=== PATIENT | female | born 1975 | race Caucasian/White ===

== ENCOUNTER 2022-11-03 10:27 | Observation (INO) | payer MEDICARE, MEDICAID, SELFPAY ==
[2022-11-03] VITALS (33 sets, daily range): BP systolic 106–156; BP diastolic 52–100; PULSE 60–87; RESP 13–23; TEMP 36.6–37.2; O2SAT 95–99
--- NOTE | 2022-11-03 10:30 | RT.EKG_ITS ---
APPROVED REPORT Exam: Resting ECG Reason for Exam: stroke like symptoms Patient Location: E HR:76 bpm ECG Measurements Heart Rate 76 AXIS SD 186 P 16 QRSd 87 QRS -28 QT 374 T 4 QTc 422 Conclusion Sinus rhythm...normal P axis, V-rate 60- 99 Inferior infarct, old...Q >35mS, II III aVF. Sinus. No STEMI. I have reviewed and interpreted ECG and agree with software generated interpretation.
--- NOTE | 2022-11-03 10:45 | DI.RAD_ITS ---
Exam(s) XR CHEST 1V IN DI DEPT EXAM: XR CHEST 1V IN DI DEPT CLINICAL HISTORY: weakness. TECHNIQUE: 2D digital imaging was performed. COMPARISON: No exams were available for comparison FINDINGS: Single AP portable view. Heart size is upper normal. The mediastinum is not widened. Lungs are clear. No infiltrates nor obvious pleural effusions. IMPRESSION: No acute pulmonary findings on this single AP portable view of the chest. DATA REPOSITORY: RADIATION DOSE DELIVERED:
--- NOTE | 2022-11-03 10:45 | DI.CT_ITS ---
Exam(s) CT BRAIN NECK CTA EXAM: CT BRAIN NECK CTA CLINICAL HISTORY: left pronator drift, left weakness, left facial. TECHNIQUE: Imaging Protocol: Axial CT angiography was performed with multi-slice acquisition and mu lti-planar and/or 3D reconstructions. CONTRAST MATERIAL: Intravenous: Omnipaque 350 Contrast volume:structured data in ml COMPARISON: No exams were available for comparison FINDINGS: CTA Neck W: Aortic arch anatomy: The aortic arch anatomy is conventional and there is no significant stenosis at the origin of the great vessels off of the aortic arch. No intimal flap evident. Anterior circulation: Both common carotid arteries ascend with normal luminal diameters. At the level the carotid bulbs and proximal internal carotid arteries there is no significant plaque nor narrowing evident. No dissection. Posterior circulation: Vertebral arteries originated conventional fashion off of the subclavian arteries and there is no obv ious stenosis at the origin of the vertebral arteries. Both vertebral arteries exhibit normal equal luminal diameters within the foramen transversarium. Both vertebral arteries contribute to the formation of the basilar artery at the skull base. CTA Brain W: Anterior circulation: Both internal carotid arteries are patent in the skull base-carotid canals as well as within the cave rnous sinuses. The supraclinoid aspects of the ICAs are patent. Both A1 segments are patent as are the anterior cer ebral arteries and there is no evidence of aneurysm at the level of the anterior communicating artery . Both middle cerebral arteries are patent with no evidence of significant stenosis nor intraluminal th rombus. There also no aneurysms of these vessels. Posterior circulation: The basilar artery ascends in the midline. Distally it gives off patent bilateral superior cerebella r arteries. Above this level the basilar artery terminates as patent bilateral posterior cerebral arteries. There is no evidence of aneurysm at the tip of the basilar artery nor elsewhere in the pwzyit-vh-Fjgj is. CT BRAIN: There is no evidence of intracranial hemorrhage, mass effect, or shift of midline structures. There are no extra-axial fluid collections. Ventricles are not enlarged or shifted. There are no ring enh ancing lesions in the brain and no abnormal meningeal enhancement. There are fluid levels in the left maxillary sinus and left sphenoid sinus consistent with sinusitis. Remainder of the paranasal sinuses are clear as are the mastoid air cells bilaterally. IMPRESSION: 1. Patent carotid arteries in the neck. No hemodynamically significant stenosis. 2. Patent vertebral arteries. 3. Patent intracranial arteries. No intracranial findings. No ring enhancing lesions in the brain. No abnormal meningeal enhancement . Fluid levels noted in the left maxillary and left sphenoid sinuses consistent with sinusitis. RADIATION DOSE DELIVERED: 1,868.49mGy.cm Total DLP DATA REPOSITORY: All CT scans at this facility are submitted to the National Radiology Data Registry (NRDR) Dose Index Registry (DIR) with the [employer] ([employer]). RADIATION OPTIMIZATION: All CT scans at this facility use at least one of these dose optimization te chniques: automated exposure control; mA and/or kV adjustment per patient size (includes targeted exa ms where dose is matched to clinical indication); or iterative reconstruction.
[2022-11-03 10:56] LABS: Abs Immature Grans 0.02 10^3/uL (0.0-0.06); Absolute Basophil Count 0.03 10^3/uL (0.0-0.2); Absolute Eosinophil Count 0.35 10^3/uL (0.0-0.7); Absolute Lymphocyte Count 3.12 10^3/uL (1.2-3.4); Absolute Monocyte Count 0.46 10^3/uL (0.1-0.8); Absolute Neutrophil Count 4.33 10^3/uL (1.2-6.7); Basophils % 0.4; Eosinophils % 4.2; HCT 40.7 % (36.0-46.0); HGB 13.6 g/dL (11.2-15.7); Immature Grans % 0.2; Lymphocytes % 37.5; MCH 29.6 pg (27.0-33.0); MCHC 33.4 % (32.0-36.0); MCV 89 fL (80-95); MPV 9.7 fL (8.0-11.0); Monocytes % 5.5; Neutrophils % 52.2; Platelet Count 301 10^3/uL (130-400); WBC 8.31 10^3/uL (4.4-10.8)
[2022-11-03 11:08] LABS: Bilirubin Negative (Negative); Blood Large (Negative); Clarity Sl Cloudy (Clear); Glucose Negative (Negative); Ketones Negative (Negative); Leukocyte Esterase Negative (Negative); Nitrite Negative (Negative); Specific Gravity 1.015 (1.005-1.025); Urobilinogen 0.2 EU/dL (Up TO 0.2); pH 7.5 (5-8)
[2022-11-03 11:10] LABS: Magnesium 1.8 mg/dL (1.8-2.4)
[2022-11-03] MEDS: Normal Saline - Diluent 50 ML VIAL IV (11:11)
[2022-11-03] MEDS: Omnipaque 350 MG/ML 100 ML BTL IJ (11:12)
[2022-11-03] MEDS: Normal Saline Flush 10 ML SYR IVP (11:13)
[2022-11-03 11:17] LABS: Bacteria Negative HPF (Negative); C & S Indicated? No; Casts Negative LPF (Negative); Crystals Negative HPF (Negative); Epithelial Cells Rare HPF (Negative); Mucus Negative (Negative); RBC 20-50 HPF (0-2); WBC 0-2 HPF (0-5)
[2022-11-03 11:25] LABS: Troponin I < 50 ng/L (<or=60)
--- NOTE | 2022-11-03 11:28 | DI.VRAD_ITS ---
PROCEDURE INFORMATION: Exam: CTA Head With Contrast, Arteriography Exam date and time: 11/03/2022 10:52 AM Age: 47 years old Clinical indication: Other: Left pronator drift, left weakness, left facial TECHNIQUE: Imaging protocol: Computed tomographic angiography of the head with contrast. Exam focused on the arteries. 3D rendering (Not supervised by radiologist): MIP and/or 3D reconstructed images were created by the technologist. Contrast material: OMNIPAQUE 350; Contrast volume: 100 ml; Contrast route: INTRAVENOUS (IV); COMPARISON: No relevant prior studies available. FINDINGS: ANTERIOR CIRCULATION: Right internal carotid artery: Intracranial segment is patent with no significant stenosis. No aneurysm. Right middle cerebral artery: No occlusion or significant stenosis. No aneurysm. Right anterior cerebral artery: No occlusion or significant stenosis. No aneurysm. Left internal carotid artery: Intracranial segment is patent with no significant stenosis. No aneurysm. Left middle cerebral artery: No occlusion or significant stenosis. No aneurysm. Left anterior cerebral artery: No occlusion or significant stenosis. No aneurysm. POSTERIOR CIRCULATION: Right vertebral artery: No occlusion or significant stenosis. No aneurysm. Left vertebral artery: No occlusion or significant stenosis. No aneurysm. Basilar artery: No occlusion or significant stenosis. No aneurysm. Right posterior cerebral artery: No occlusion or significant stenosis. No aneurysm. Left posterior cerebral artery: No occlusion or significant stenosis. No aneurysm. Brain: Hassan-white matter differentiation is within normal limits. No mass effect or midline shift. White matter is unremarkable.. Sulci and basilar cisterns are within normal limits. No extra-axial fluid collection. Cerebral ventricles: No ventriculomegaly. Paranasal sinuses: Mild mucosal thickening in the bilateral anterior ethmoidal air cells. Minimal mucosal thickening in the bilateral maxillary sinuses. Bones/joints: Unremarkable. No acute fracture. Soft tissues: Unremarkable. IMPRESSION: 1. No major vessel cut off /occlusion or high-grade stenosis in the arteries of the hugitg-bc-Ewfpqb. 2. No acute intracranial abnormality. No mass effect or midline shift or acute intracranial hemorrhage. PROCEDURE INFORMATION: Exam: CTA Neck With Contrast Exam date and time: 11/03/2022 10:52 AM Age: 47 years old Clinical indication: Other: Left pronator drift, left weakness, left facial TECHNIQUE: Imaging protocol: Computed tomographic angiography of the neck with contrast. 3D rendering (Not supervised by radiologist): MIP and/or 3D reconstructed images were created by the technologist. Contrast material: OMNIPAQUE 350; Contrast volume: 100 ml; Contrast route: INTRAVENOUS (IV); COMPARISON: No relevant prior studies available. FINDINGS: Right common carotid artery: No stenosis. No dissection or occlusion. Right internal carotid artery: No stenosis of the extracranial segment. No dissection or occlusion. Right external carotid artery: No occlusion or stenosis of the origin. Left common carotid artery: No stenosis. No dissection or occlusion. Left internal carotid artery: No stenosis of the extracranial segment. No dissection or occlusion. Left external carotid artery: No occlusion or stenosis of the origin. Right vertebral artery: No stenosis. No dissection or occlusion. Left vertebral artery: No stenosis. No dissection or occlusion. Soft tissues: Normal. No significant soft tissue swelling. Bones/joints: Straightening of cervical lordosis with mild reversal. IMPRESSION: No stenosis in the arteries of the neck. REFERENCES: NASCET CRITERIA. The degree of stenosis in the cervical segment of the internal carotid artery is based on NASCET criteria. Normal is no stenosis. Mild is less than 50% stenosis. Moderate is 50-69% stenosis. Severe is 70% to 99% stenosis. Total occlusion is no detectable patent lumen. Dictated and Authenticated by: Mil Srinivasan MD. Ordering:MEAGHAN Flores MD
--- NOTE | 2022-11-03 11:29 | DI.VRAD_ITS ---
PROCEDURE INFORMATION: Exam: XR Chest Exam date and time: 11/03/2022 11:18 AM Age: 47 years old Clinical indication: Other: Weakness TECHNIQUE: Imaging protocol: Radiologic exam of the chest. Views: 1 view. COMPARISON: CT BRAIN NECK CTA 11/03/2022 10:52 AM FINDINGS: Lungs: Unremarkable. No consolidation. Pleural spaces: Unremarkable. No pleural effusion. No pneumothorax. Heart/Mediastinum: Unremarkable. No cardiomegaly. Bones/joints: Unremarkable. IMPRESSION: No acute findings. Dictated and Authenticated by: Mil Srinivasan MD. Ordering:MEAGHAN Flores MD
[2022-11-03 11:30] LABS: ALT 17 U/L (14-59); AST 16 U/L (15-37); Albumin 3.7 g/dL (3.4-5.0); Alkaline Phosphatase 56 U/L (46-116); Anion Gap 7.5 mmol/L (3-11); BUN 10 mg/dL (7-18); Bilirubin, Total 0.4 mg/dL (0.2-1.0); CO2 28.5 mmol/L (21.0-32.0); CREATININE 0.9 mg/dL (0.55-1.02); Calcium 8.9 mg/dL (8.5-10.1); Chloride 102 mmol/L (98-107); Estimated GFR 78.86 (mL/min/1.73m2); Glucose 109 mg/dL (74-106); Potassium 3.6 mmol/L (3.5-5.1); Sodium 138 mmol/L (136-145); TSH (W/Ref FT4) 2.32 uIU/mL (0.36-3.74); Total Protein 7.8 g/dL (6.4-8.2)
[2022-11-03] MEDS: Aspirin 81 MG CHEW 324 MG PO (11:58)
[2022-11-03 12:45] LABS: Source Nasal/Nares
[2022-11-03] MEDS: Clopidogrel 300 MG TAB PO (12:50)
--- NOTE | 2022-11-03 12:53 | W.ED.GENAD ---
Discharge Plan Disposition Patient Disposition: Admit to [facility] Discharge Details Clinical Impression: History of TIA due to embolism Admit Date/Time: 11/03/22 12:44 Admit Provider: Yessy Fajardo Attending Provider: Yessy Fajardo Primary Care Provider: Deana Shaw ED Provider: Sandra Pineda Discharge Data Discharge Date/Time-TO BE ENTERED AT DEPARTURE: 11/03/22 13:21 Medical Decision Making 47-year-old female presents with left upper arm and leg weakness with paresthesias to left face she is unsure if her symptoms started prior to waking up, she states that she noticed them first when she was walking to the bathroom She denies any chest pain or shortness of breath She states that she has had similar symptoms in the past with hypokalemia although her potassium is more than normal limits today Her labs are baseline for her Her EKG does not show evidence of acute abnormality CTA does not show evidence of acute abnormality Case was reviewed with on-call neurologist, Dr. Tariq at [facility] His recommendation is to start Plavix and aspirin, check lipids, echo at her discretion, and perform dedicated MRI Patient's symptoms on reassessment have improved Her symptoms have continually improved throughout her encounter today She denies any chest pain or shortness of breath She denies any difficulty swallowing Aspirin and Plavix were initiated Case was discussed with Dr. Fajardo who is agreeable to admitting this patient HPI General Date/Time Provider Initiated Documentation: 11/03/22 10:38. HPI Narrative: This 47-year-old female presents with left facial paresthesias which started approximately 8:30 AM. She states she had just woken up when her symptoms began. She is unsure as to whether or not they started after she woke up prior to. She denies any difficulty swallowing, chest pain, shortness of breath, palpitations. Related Data Home Medications Medication Instructions Recorded Confirmed Ca 600 mg-D3 20 mcg-mag oxide 50 1 tab PO DAILY 11/03/22 11/03/22 uo-Af-jgskuw-manganese-boron tablet fluticasone furoate 200 2 inh inhalation 11/03/22 mcg/actuation blister powder for inhalation paroxetine HCl 20 mg tablet 20 mg PO DAILY 11/03/22 11/03/22 vitamin B complex 1 cap PO DAILY 11/03/22 11/03/22 albuterol sulfate 90 mcg/actuation 1 puff inhalation Q4H PRN PRN 11/04/22 aerosol inhaler (Ventolin HFA) Wheezing, Shortness Of Breath #0 grams aspirin 81 mg chewable tablet 81 mg PO DAILY #0 tabs 11/04/22 (Children's Aspirin) clopidogrel 75 mg tablet 75 mg PO DAILY #21 tabs 11/04/22 pravastatin 20 mg tablet 80 mg PO QPM #30 tabs 11/04/22 Previous Rx's Medication Instructions Recorded albuterol sulfate 90 mcg/actuation 1 puff inhalation Q4H PRN PRN 11/04/22 aerosol inhaler (Ventolin HFA) Wheezing, Shortness Of Breath #0 grams aspirin 81 mg chewable tablet 81 mg PO DAILY #0 tabs 11/04/22 (Children's Aspirin) clopidogrel 75 mg tablet 75 mg PO DAILY #21 tabs 11/04/22 pravastatin 20 mg tablet 80 mg PO QPM #30 tabs 11/04/22 Allergies Allergy/AdvReac Type Severity Reaction Status Date / Time Penicillins Allergy Anaphylaxis Unverified 11/03/22 11:01 vancomycin Allergy Other (See Unverified 11/03/22 11:02 Comment) General Stated Complaint: CVA/TIA LUIS M: 2 Review of Systems All systems reviewed & are unremarkable except as noted in HPI and below PFSH All Active Problems (Updated 11/06/22 @ 08:30 by ALEXANDRA Yanez) History of TIA due to embolism (Acute) Social History Smoking/Tobacco Use Status: Former Tobacco Use Smoking risk assessment performed?: Yes Alcohol Intake: current Alcohol Intake frequency: holidays/special occasions only Drug use: Occasionally Substance use type: marijuana Do you feel safe at home: Yes Do you feel safe in your relationship?: Yes Exam Const General: cooperative, comfortable and no acute distress Eyes Pupils: PERRL EOM: EOM intact bilaterally Neck Other: no carotid bruit Resp Effort & Inspection: normal respiratory effort Auscultation: clear to auscultation bilaterally Cardio Rate: regular rate Rhythm: regular rhythm GI Inspection: normal to inspection Skin General skin exam: no rashes or lesions noted Neuro General: patient alert, patient oriented x3 and CN's II-XI intact bilaterally Cranial Nerves: PERRL Cognition: normal cognition Speech: speech normal Other: Pronator drift, 3 out of 5 weakness left upper and left lower extremity, diminished sensation to left side of face:, Mild flattening to legs nasolabial fold Extrem General: normal to inspection Course Vital Signs Vital signs: Vital Signs Pulse 74 11/03/22 10:32 Respiratory Rate 18 11/03/22 10:32 Blood Pressure 156/100 H 11/03/22 10:32 Pulse Oximetry 99 11/03/22 10:32 Pulse 65 11/03/22 12:45 Pulse 73 11/03/22 12:50 Respiratory Rate 13 11/03/22 12:50 Respiratory Effort Non-Labored 11/03/22 10:39 Respiratory Depth Normal 11/03/22 10:39 Respiratory Pattern Normal 11/03/22 10:39 Blood Pressure 122/65 11/03/22 12:45 Blood Pressure Mean 80 11/03/22 12:45 Blood Pressure Position Sitting 11/03/22 10:32 Pulse Oximetry 99 11/03/22 12:50 Oxygen Delivery Method Room Air 11/03/22 10:32 Oxygen Flow Rate 0 11/03/22 10:32 Lab/Test Results Lab/Test Results: Laboratory Tests Range/Units 11/03/22 11/03/22 11/03/22 10:43 10:43 10:43 WBC (4.4-10.8) 10^3/uL 8.31 RBC (3.93-5.22) 10^6/uL 4.60 Hgb (11.2-15.7) g/dL 13.6 Hct (36.0-46.0) % 40.7 MCV (80-95) fL 89 MCH (27.0-33.0) pg 29.6 MCHC (32.0-36.0) % 33.4 RDW (11.7-14.6) % 12.0 Plt Count (130-400) 10^3/uL 301 MPV (8.0-11.0) fL 9.7 Immature Gran % 0.2 Neutrophils % 52.2 Lymphocytes % 37.5 Monocytes % 5.5 Eosinophils % 4.2 Basophils % 0.4 Nucleated RBC % (0.0-0.3) % 0.0 Absolute Neutrophils (1.2-6.7) 10^3/uL 4.33 Absolute Lymphocytes (1.2-3.4) 10^3/uL 3.12 Absolute Monocytes (0.1-0.8) 10^3/uL 0.46 Absolute Eosinophils (0.0-0.7) 10^3/uL 0.35 Absolute Basophils (0.0-0.2) 10^3/uL 0.03 Sodium (136-145) mmol/L 138 Potassium (3.5-5.1) mmol/L 3.6 Chloride (98-107) mmol/L 102 Carbon Dioxide (21.0-32.0) mmol/L 28.5 Anion Gap (3-11) mmol/L 7.5 BUN (7-18) mg/dL 10 Creatinine (0.55-1.02) mg/dL 0.9 Est GFR (CKD-EPI 2020) (mL/min/1.73m2) 78.86 Glucose (74-106) mg/dL 109 H Calcium (8.5-10.1) mg/dL 8.9 Magnesium (1.8-2.4) mg/dL Total Bilirubin (0.2-1.0) mg/dL 0.4 AST (15-37) U/L 16 ALT (14-59) U/L 17 Alkaline Phosphatase (46-116) U/L 56 Troponin I (<or=60) ng/L < 50 Total Protein (6.4-8.2) g/dL 7.8 Albumin (3.4-5.0) g/dL 3.7 TSH (0.36-3.74) uIU/mL 2.32 Urine Color (Yellow) Urine Clarity (Clear) Urine pH (5-8) Ur Specific [place] (1.005-1.025) Urine Protein (Negative) mg/dL Urine Ketones (Negative) mg/dL Urine Blood (Negative) Urine Nitrite (Negative) Urine Bilirubin (Negative) Urine Urobilinogen (Up TO 0.2) EU/dL Ur Leukocyte Esterase (Negative) Urine RBC (0-2) HPF Urine WBC (0-5) HPF Ur Epithelial Cells (Negative) HPF Urine Crystals (Negative) HPF Urine Bacteria (Negative) HPF Urine Casts (Negative) LPF Urine Mucus (Negative) Ur Culture Indicated? Urine Glucose (Negative) mg/dL COVID-19 Source Range/Units 11/03/22 11/03/22 11/03/22 10:43 10:45 11:00 WBC (4.4-10.8) 10^3/uL RBC (3.93-5.22) 10^6/uL Hgb (11.2-15.7) g/dL Hct (36.0-46.0) % MCV (80-95) fL MCH (27.0-33.0) pg MCHC (32.0-36.0) % RDW (11.7-14.6) % Plt Count (130-400) 10^3/uL MPV (8.0-11.0) fL Immature Gran % Neutrophils % Lymphocytes % Monocytes % Eosinophils % Basophils % Nucleated RBC % (0.0-0.3) % Absolute Neutrophils (1.2-6.7) 10^3/uL Absolute Lymphocytes (1.2-3.4) 10^3/uL Absolute Monocytes (0.1-0.8) 10^3/uL Absolute Eosinophils (0.0-0.7) 10^3/uL Absolute Basophils (0.0-0.2) 10^3/uL Sodium (136-145) mmol/L Cancelled Potassium (3.5-5.1) mmol/L Cancelled Chloride (98-107) mmol/L Cancelled Carbon Dioxide (21.0-32.0) mmol/L Cancelled Anion Gap (3-11) mmol/L Cancelled BUN (7-18) mg/dL Cancelled Creatinine (0.55-1.02) mg/dL Cancelled Est GFR (CKD-EPI 2020) (mL/min/1.73m2) Cancelled Glucose (74-106) mg/dL Cancelled Calcium (8.5-10.1) mg/dL Cancelled Magnesium (1.8-2.4) mg/dL 1.8 Total Bilirubin (0.2-1.0) mg/dL Cancelled AST (15-37) U/L Cancelled ALT (14-59) U/L Cancelled Alkaline Phosphatase (46-116) U/L Cancelled Troponin I (<or=60) ng/L Total Protein (6.4-8.2) g/dL Cancelled Albumin (3.4-5.0) g/dL Cancelled TSH (0.36-3.74) uIU/mL Urine Color (Yellow) Yellow Urine Clarity (Clear) Sl Cloudy Urine pH (5-8) 7.5 Ur Specific [place] (1.005-1.025) 1.015 Urine Protein (Negative) mg/dL Negative Urine Ketones (Negative) mg/dL Negative Urine Blood (Negative) Large H Urine Nitrite (Negative) Negative Urine Bilirubin (Negative) Negative Urine Urobilinogen (Up TO 0.2) EU/dL 0.2 Ur Leukocyte Esterase (Negative) Negative Urine RBC (0-2) HPF 20-50 H Urine WBC (0-5) HPF 0-2 Ur Epithelial Cells (Negative) HPF Rare Urine Crystals (Negative) HPF Negative Urine Bacteria (Negative) HPF Negative Urine Casts (Negative) LPF Negative Urine Mucus (Negative) Negative Ur Culture Indicated? No Urine Glucose (Negative) mg/dL Negative COVID-19 Source Range/Units 11/03/22 12:43 WBC (4.4-10.8) 10^3/uL RBC (3.93-5.22) 10^6/uL Hgb (11.2-15.7) g/dL Hct (36.0-46.0) % MCV (80-95) fL MCH (27.0-33.0) pg MCHC (32.0-36.0) % RDW (11.7-14.6) % Plt Count (130-400) 10^3/uL MPV (8.0-11.0) fL Immature Gran % Neutrophils % Lymphocytes % Monocytes % Eosinophils % Basophils % Nucleated RBC % (0.0-0.3) % Absolute Neutrophils (1.2-6.7) 10^3/uL Absolute Lymphocytes (1.2-3.4) 10^3/uL Absolute Monocytes (0.1-0.8) 10^3/uL Absolute Eosinophils (0.0-0.7) 10^3/uL Absolute Basophils (0.0-0.2) 10^3/uL Sodium (136-145) mmol/L Potassium (3.5-5.1) mmol/L Chloride (98-107) mmol/L Carbon Dioxide (21.0-32.0) mmol/L Anion Gap (3-11) mmol/L BUN (7-18) mg/dL Creatinine (0.55-1.02) mg/dL Est GFR (CKD-EPI 2020) (mL/min/1.73m2) Glucose (74-106) mg/dL Calcium (8.5-10.1) mg/dL Magnesium (1.8-2.4) mg/dL Total Bilirubin (0.2-1.0) mg/dL AST (15-37) U/L ALT (14-59) U/L Alkaline Phosphatase (46-116) U/L Troponin I (<or=60) ng/L Total Protein (6.4-8.2) g/dL Albumin (3.4-5.0) g/dL TSH (0.36-3.74) uIU/mL Urine Color (Yellow) Urine Clarity (Clear) Urine pH (5-8) Ur Specific [place] (1.005-1.025) Urine Protein (Negative) mg/dL Urine Ketones (Negative) mg/dL Urine Blood (Negative) Urine Nitrite (Negative) Urine Bilirubin (Negative) Urine Urobilinogen (Up TO 0.2) EU/dL Ur Leukocyte Esterase (Negative) Urine RBC (0-2) HPF Urine WBC (0-5) HPF Ur Epithelial Cells (Negative) HPF Urine Crystals (Negative) HPF Urine Bacteria (Negative) HPF Urine Casts (Negative) LPF Urine Mucus (Negative) Ur Culture Indicated? Urine Glucose (Negative) mg/dL COVID-19 Source Nasal/Nares Critical Care Time Critical Care Time Attestation: Approximately 40 minutes of critical care time was performed secondary to risk of life-threatening illness, patient was placed on telemetry monitoring, diagnostic labs, CTA of her head and neck, and ultimately was admitted to the hospital for observation and further possible therapeutic intervention, consultation with hospitalist, neurosurgeon, and patient was ultimately admitted to the hospital PAWSS Have you Been Recently Intoxicated or Drunk Within the Last 30 days?: No Have you Ever Experienced Previous Episodes of Alcohol Withdrawal?: No Have you ever Experienced Withdrawal Seizures?: No Have you ever Experienced Delirium Tremens(DT)s?: No Have you ever undergone Alcohol Rehabilitation Treatment (i.e, inpt ot outpatient treatment programs)?: No Have you ever Experienced Blackouts?: No Have you ever Combined Alcohol with other Downers within the last 90 days?: No Have you ever Combined Alcohol with any other Substance of Abuse during the last 90 days?: No Positive Blood Alcohol level on Presentation? [PCS.BAL]: No Evidence of Increased Autonomic Activity (i.e. HR>120, tremor, sweating, agitation, nausea)?: No Result: 0
[2022-11-03 13:59] LABS: Hemoglobin A1C 5.7 % (<5.7)
[2022-11-03 14:01] LABS: COVID-19 PCR Negative (Negative)
[2022-11-03 14:15] LABS: Vitamin B12 602 pg/mL (193-986)
[2022-11-03] MEDS: Normal Saline 1,000 ML 75 ML IV (14:35)
[2022-11-03 14:37] LABS: Troponin I < 50 ng/L (<or=60)
--- NOTE | 2022-11-03 14:59 | HPE_ITS ---
Date of service: 11/03/22 Time of Service: 14:59 Assessment and Plan Assessment and plan (1) Paresthesia of left arm and leg: Status: Acute Assessment and plan: Improving: Consult Neuro Echo; consider cardiac event monitoring on discharge MRI PT OT Speech if necessary A1C 5.7 B12, Lyme panel, Lipid panel, Cholesterol pending TSH 2.32 Carotid US - CTA head/neck done - negative, no acute findings UTox positive for THC, all else negative (2) Facial paresthesia: Status: Acute Assessment and plan: As above (3) Hematuria: Status: Acute Assessment and plan: Large Urine RBC 20-50, leuk neg, WBC neg; pH 7.5, spgr 1.015 Denies trauma, denies urgency, frequency or pain with urination This is likely related to her menses. PCP should ensure hematuria resolves after cessation of her menses. (4) DVT prophylaxis: Status: Acute Assessment and plan: Enoxaparin TEDS (5) Discharge planning issues: Status: Acute Assessment and plan: Home when stable With Friday being a holiday, 11/04/2022 - no echo and no MRI, will change order to Friday or outpatient Discussed with Dr Fajardo History of Present Illness History of Present Illness Chief Complaint: Left sided fascial tingling/numbness Narrative: This is a 47-year-old female patient who presented to the [facility] emergency department with the chief complaint of left facial paresthesias which started approximately 8:30 AM when she woke up.She did not have any symptoms when she went to bed. She also had LUE and LLE weakness and paresthesias. She denied any difficulty swallowing, chest pain, shortness of breath, palpitations. No fever, no nausea, no vomiting, no diarrhea, no recent illness. She has no altered mental status, and no loss of consciousness. On arrival to the ED, she had a L nasolabial flattening, slight weakness to LUE/LLE and a mild L pronator drift. She was treated with full dose ASA and 300 mg of plavix. [facility] neurology recommended MRI of the brain and outpatient follow up in a stroke clinic. Observation on hospitalist service was requested. Review of Systems Narrative: Denies history of hypertension, diabetes, high cholesterol, high-cholesterol and does not smoke.? She denies recent trauma, no history of coagulopathies or illicit drug use.? She does not have a history of migraine headache and does not take oral contraceptives. No loss of speech, no paralysis, no visual changes. All systems reviewed & are unremarkable except as noted in HPI and below Cardiovascular Comments: NSR no ectopy noted on telemetry PFSH All Active Problems (Updated 11/03/22 @ 17:31 by Regina Bajwa NP) Hematuria (Acute) Discharge planning issues (Acute) DVT prophylaxis (Acute) Facial paresthesia (Acute) Paresthesia of left arm and leg (Acute) Social History Smoking/Tobacco Use Status: Former Tobacco Use Smoking risk assessment performed?: Yes Alcohol Intake: current Alcohol Intake frequency: holidays/special occasions only Drug use: Occasionally Substance use type: marijuana Do you feel safe at home: Yes Do you feel safe in your relationship?: Yes Meds Allergies and Home Medications Allergies Allergy/AdvReac Type Severity Reaction Status Date / Time Penicillins Allergy Anaphylaxis Unverified 11/03/22 11:01 vancomycin Allergy Other (See Unverified 11/03/22 11:02 Comment) Home Medications Medication Instructions Recorded Confirmed Type Ca 600 mg-D3 20 mcg-mag oxide 50 1 tab PO DAILY 11/03/22 11/03/22 History hj-Dj-hvpoam-manganese-boron tablet fluticasone furoate 200 2 inh inhalation 11/03/22 History mcg/actuation blister powder for inhalation paroxetine HCl 20 mg tablet 20 mg PO DAILY 11/03/22 11/03/22 History vitamin B complex 1 cap PO DAILY 11/03/22 11/03/22 History albuterol sulfate 90 mcg/actuation 1 puff inhalation Q4H PRN PRN 11/04/22 Rx aerosol inhaler (Ventolin HFA) Wheezing, Shortness Of Breath #0 grams aspirin 81 mg chewable tablet 81 mg PO DAILY #0 tabs 11/04/22 Rx (Children's Aspirin) clopidogrel 75 mg tablet 75 mg PO DAILY #21 tabs 11/04/22 Rx pravastatin 20 mg tablet 80 mg PO QPM #30 tabs 11/04/22 Rx Exam Narrative Exam Narrative: Constitutional: Alert and oriented x3. Appears stated age. Normal body habitus. Head: Normocephalic, no trauma. Eyes: Pupils PERRL, Red reflex noted, EOM's intact. Eyelids symmetrical without lesions, discharge, or swelling. Chest: RRR, Normal S1, S2, distal pulses intact. Resp: Lungs clear to auscultation bilaterally, no wheezes, rales, or rhonchi. Abdomen: Soft, non-distended, negative Allan sign, right CVA tenderness with palpation. Musculoskeletal: Normal gait, 5/5 strength to all four extremities. Skin: No suspicious rashes or lesions. Capillary refill less than 2 sec. Neurologic: Cranial nerves II-XII intact. Alert and oriented x 3. Motor: No deficits noted. Sensory: Intact bilaterally all 4 extremities. Hematologic/Lymphatic: No ecchymosis, no lymphadenopathy. Const General: cooperative, comfortable, no acute distress and well groomed Nutritional Appearance: average body habitus Orientation: alert, awake and oriented x3 Limitations: mental status not altered Eyes Pupils: PERRL EOM: EOM intact bilaterally Neck Other: no carotid bruit Resp Effort & Inspection: normal respiratory effort Auscultation: clear to auscultation bilaterally Cardio Rate: regular rate Rhythm: regular rhythm GI Inspection: normal to inspection Skin General skin exam: no rashes or lesions noted Neuro General: patient alert, patient oriented x3 and CN's II-XI intact bilaterally Cranial Nerves: PERRL Cognition: normal cognition Speech: speech normal Other: Pronator drift, 3 out of 5 weakness left upper and left lower extremity, diminished sensation to left side of face:, Mild flattening to legs nasolabial fold Extrem General: normal to inspection Results Labs Result diagrams: 11/04/22 05:48 11/04/22 05:48 Labs: Laboratory Results - last 24 hr 11/03/22 11/03/22 11/03/22 10:43 10:43 10:43 WBC 8.31 RBC 4.60 Hgb 13.6 Hct 40.7 MCV 89 MCH 29.6 MCHC 33.4 RDW 12.0 Plt Count 301 MPV 9.7 Immature Gran % 0.2 Neutrophils % 52.2 Lymphocytes % 37.5 Monocytes % 5.5 Eosinophils % 4.2 Basophils % 0.4 Nucleated RBC % 0.0 Absolute Neutrophils 4.33 Absolute Lymphocytes 3.12 Absolute Monocytes 0.46 Absolute Eosinophils 0.35 Absolute Basophils 0.03 Sodium 138 Potassium 3.6 Chloride 102 Carbon Dioxide 28.5 Anion Gap 7.5 BUN 10 Creatinine 0.9 Est GFR (CKD-EPI 2020) 78.86 Glucose 109 H Hemoglobin A1c Calcium 8.9 Magnesium Total Bilirubin 0.4 AST 16 ALT 17 Alkaline Phosphatase 56 Troponin I < 50 Total Protein 7.8 Albumin 3.7 Vitamin B12 TSH 2.32 Urine Color Urine Clarity Urine pH Ur Specific [place] Urine Protein Urine Ketones Urine Blood Urine Nitrite Urine Bilirubin Urine Urobilinogen Ur Leukocyte Esterase Urine RBC Urine WBC Ur Epithelial Cells Urine Crystals Urine Bacteria Urine Casts Urine Mucus Ur Culture Indicated? Urine Glucose COVID-19 Source SARS-CoV-2 (PCR) 11/03/22 11/03/22 11/03/22 10:43 10:43 10:43 WBC RBC Hgb Hct MCV MCH MCHC RDW Plt Count MPV Immature Gran % Neutrophils % Lymphocytes % Monocytes % Eosinophils % Basophils % Nucleated RBC % Absolute Neutrophils Absolute Lymphocytes Absolute Monocytes Absolute Eosinophils Absolute Basophils Sodium Potassium Chloride Carbon Dioxide Anion Gap BUN Creatinine Est GFR (CKD-EPI 2020) Glucose Hemoglobin A1c 5.7 Calcium Magnesium 1.8 Total Bilirubin AST ALT Alkaline Phosphatase Troponin I Total Protein Albumin Vitamin B12 602 TSH Urine Color Urine Clarity Urine pH Ur Specific [place] Urine Protein Urine Ketones Urine Blood Urine Nitrite Urine Bilirubin Urine Urobilinogen Ur Leukocyte Esterase Urine RBC Urine WBC Ur Epithelial Cells Urine Crystals Urine Bacteria Urine Casts Urine Mucus Ur Culture Indicated? Urine Glucose COVID-19 Source SARS-CoV-2 (PCR) 11/03/22 11/03/22 11/03/22 10:45 11:00 12:43 WBC RBC Hgb Hct MCV MCH MCHC RDW Plt Count MPV Immature Gran % Neutrophils % Lymphocytes % Monocytes % Eosinophils % Basophils % Nucleated RBC % Absolute Neutrophils Absolute Lymphocytes Absolute Monocytes Absolute Eosinophils Absolute Basophils Sodium Cancelled Potassium Cancelled Chloride Cancelled Carbon Dioxide Cancelled Anion Gap Cancelled BUN Cancelled Creatinine Cancelled Est GFR (CKD-EPI 2020) Cancelled Glucose Cancelled Hemoglobin A1c Calcium Cancelled Magnesium Total Bilirubin Cancelled AST Cancelled ALT Cancelled Alkaline Phosphatase Cancelled Troponin I Total Protein Cancelled Albumin Cancelled Vitamin B12 TSH Urine Color Yellow Urine Clarity Sl Cloudy Urine pH 7.5 Ur Specific [place] 1.015 Urine Protein Negative Urine Ketones Negative Urine Blood Large H Urine Nitrite Negative Urine Bilirubin Negative Urine Urobilinogen 0.2 Ur Leukocyte Esterase Negative Urine RBC 20-50 H Urine WBC 0-2 Ur Epithelial Cells Rare Urine Crystals Negative Urine Bacteria Negative Urine Casts Negative Urine Mucus Negative Ur Culture Indicated? No Urine Glucose Negative COVID-19 Source Nasal/Nares SARS-CoV-2 (PCR) Negative 11/03/22 14:05 WBC RBC Hgb Hct MCV MCH MCHC RDW Plt Count MPV Immature Gran % Neutrophils % Lymphocytes % Monocytes % Eosinophils % Basophils % Nucleated RBC % Absolute Neutrophils Absolute Lymphocytes Absolute Monocytes Absolute Eosinophils Absolute Basophils Sodium Potassium Chloride Carbon Dioxide Anion Gap BUN Creatinine Est GFR (CKD-EPI 2020) Glucose Hemoglobin A1c Calcium Magnesium Total Bilirubin AST ALT Alkaline Phosphatase Troponin I < 50 Total Protein Albumin Vitamin B12 TSH Urine Color Urine Clarity Urine pH Ur Specific [place] Urine Protein Urine Ketones Urine Blood Urine Nitrite Urine Bilirubin Urine Urobilinogen Ur Leukocyte Esterase Urine RBC Urine WBC Ur Epithelial Cells Urine Crystals Urine Bacteria Urine Casts Urine Mucus Ur Culture Indicated? Urine Glucose COVID-19 Source SARS-CoV-2 (PCR) Last Vital Signs Temp 37 C 11/03/22 14:54 Pulse 72 11/03/22 14:54 Resp 18 11/03/22 14:54 BP 123/74 11/03/22 14:54 Pulse Ox 97 11/03/22 14:54 PAWSS Have you Been Recently Intoxicated or Drunk Within the Last 30 days?: No Have you Ever Experienced Previous Episodes of Alcohol Withdrawal?: No Have you ever Experienced Withdrawal Seizures?: No Have you ever Experienced Delirium Tremens(DT)s?: No Have you ever undergone Alcohol Rehabilitation Treatment (i.e, inpt ot outpatient treatment programs)?: No Have you ever Experienced Blackouts?: No Have you ever Combined Alcohol with other Downers within the last 90 days?: No Have you ever Combined Alcohol with any other Substance of Abuse during the last 90 days?: No Positive Blood Alcohol level on Presentation? [PCS.BAL]: No Evidence of Increased Autonomic Activity (i.e. HR>120, tremor, sweating, agitation, nausea)?: No Result: 0
[2022-11-03 16:23] LABS: *AMPHETAMINES SCREEN URINE Negative (Negative); *BARBITURATES SCREEN URINE Negative (Negative); *BENZODIAZEPINES SCREEN URINE Negative (Negative); Cannabinoids THC Positive (Negative); Cocaine Screen,Urine Negative (Negative); METHADONE URINE SCREEN Negative (Negative); OPIATES URINE SCREEN Negative (Negative)
[2022-11-03 16:25] LABS: Tricyclic Antidepressants Negative (Negative)
[2022-11-04 02:45] VITALS: BP 98/51; PULSE 67; RESP 16; TEMP 37; O2SAT 98
[2022-11-04 06:22] LABS: Abs Immature Grans 0.01 10^3/uL (0.0-0.06); Absolute Basophil Count 0.03 10^3/uL (0.0-0.2); Absolute Eosinophil Count 0.61 10^3/uL (0.0-0.7); Absolute Lymphocyte Count 3.12 10^3/uL (1.2-3.4); Absolute Monocyte Count 0.42 10^3/uL (0.1-0.8); Absolute Neutrophil Count 3.54 10^3/uL (1.2-6.7); Basophils % 0.4; Eosinophils % 7.9; HCT 40.4 % (36.0-46.0); HGB 13.8 g/dL (11.2-15.7); Immature Grans % 0.1; Lymphocytes % 40.4; MCHC 34.2 % (32.0-36.0); MCV 88 fL (80-95); MPV 9.6 fL (8.0-11.0); Monocytes % 5.4; Neutrophils % 45.8; Platelet Count 300 10^3/uL (130-400); RDW 12.3 % (11.7-14.6); RDW-SD 39.7 fL; WBC 7.73 10^3/uL (4.4-10.8)
[2022-11-04 06:35] LABS: ALT 14 U/L (14-59); AST 12 U/L (15-37); Albumin 3.3 g/dL (3.4-5.0); Alkaline Phosphatase 54 U/L (46-116); Anion Gap 7.7 mmol/L (3-11); BUN 10 mg/dL (7-18); Bilirubin, Total 0.3 mg/dL (0.2-1.0); CO2 27.3 mmol/L (21.0-32.0); CREATININE 0.9 mg/dL (0.55-1.02); Calcium 8.6 mg/dL (8.5-10.1); Chloride 104 mmol/L (98-107); Estimated GFR 78.86 (mL/min/1.73m2); Glucose 116 mg/dL (74-106); PTT Activated 25.2 sec (21.0-27.5); Potassium 3.7 mmol/L (3.5-5.1); Prothrombin Time 9.9 sec (9.3-11.0); Sodium 139 mmol/L (136-145); Total Protein 7.1 g/dL (6.4-8.2)
[2022-11-04 07:12] LABS: Calculated LDL 112 mg/dL (<100); Cholesterol 179 mg/dL (<200); HDL Cholesterol 50 mg/dL (40-60); Magnesium 1.9 mg/dL (1.8-2.4); Triglyceride 87 mg/dL (<150)
[2022-11-04 07:24] VITALS: BP 109/71; PULSE 65; RESP 16; TEMP 37; O2SAT 96
[2022-11-04] MEDS: Normal Saline Flush 10 ML SYR IVP (08:01)
[2022-11-04] MEDS: Vitamins B Comp w/C TAB 1 TAB PO (08:01)
[2022-11-04 08:02] VITALS: PULSE 67
[2022-11-04] MEDS: Aspirin 81 MG CHEW PO (08:02)
--- NOTE | 2022-11-04 09:12 | PT.INNT ---
PT Notes Visit Reasons: CVA v TIA Received secondary 'referral' indicating that this patient is 'D/C Non PT dependent'. IE cancelled.
--- NOTE | 2022-11-04 09:32 | W.PM.DS.N ---
Date of service: 11/04/22 Time of Service: 09:32 DS: Diagnosis Discharge Diagnosis (1) Paresthesia of left arm and leg: Status: Resolved Asessment and Plan: No complaints, totally resolved (2) Facial paresthesia: Status: Resolved Asessment and Plan: No complaints, totally resolved (3) Hematuria: Status: Deleted Asessment and Plan: She reports this is s/t current menses - encouraged to follow up with PCP if hematuria is real after completion of menses. (4) DVT prophylaxis: Status: Deleted (5) Discharge planning issues: Status: Deleted Discharge Plan Disposition Patient Disposition: Home Condition: Good Discharge Details Reason For Visit: CVA v TIA Admit Date/Time: 11/03/22 12:44 Admit Provider: Yessy Fajardo Attending Provider: Yessy Fajardo Primary Care Provider: Deana Shaw Hospital Course Hospital Course: This is a 47-year-old female patient who presented to the [facility] emergency department with the chief complaint of left facial paresthesias which started approximately 8:30 AM when she woke up.She did not have any symptoms when she went to bed. She also had LUE and LLE weakness and paresthesias. She denied any difficulty swallowing, chest pain, shortness of breath, palpitations. No fever, no nausea, no vomiting, no diarrhea, no recent illness.? She has no altered mental status, and no loss of consciousness. On arrival to the ED, she had a L nasolabial flattening, slight weakness to LUE/LLE and a mild L pronator drift. She was treated with full dose ASA and 300 mg of plavix. [facility] neurology recommended MRI of the brain and outpatient follow up in a stroke clinic. Observation on hospitalist service was requested. Overnight her symptoms resolved completely without intervention. She has an autistic son that has an appointment @ [facility] on Monday 11/05 and she would like to go home today. It is reasonable for her to go home with her symptoms resolved. She was told to start Plavix, Aspirin and Pravastatin until she follows up with Neurology at [facility] (referral sent) and if symptoms returned to call 911/go to closest emergency department. An echocardiogram and MRI of the head were ordered outpatient. She is discharged to home stable. Consider an atypical migraine given a pre-menstrual timing of her neurological symptoms. discussed with Dr Fajardo ? Home Meds and New Rx's Prescriptions: New aspirin [Children's Aspirin] 81 mg Tablet,Chewable 81 mg PO DAILY Qty: 0 0RF clopidogrel 75 mg Tablet 75 mg PO DAILY Qty: 21 0RF albuterol sulfate [Ventolin HFA] 90 mcg/actuation Hfa Aerosol Inhaler 1 puff inhalation Q4H PRN PRN (Reason: Wheezing, Shortness Of Breath) Qty: 0 0RF pravastatin 20 mg Tablet 80 mg PO QPM Qty: 30 0RF Continued Ca-D3-mag ys-fgyf-axb-[id number]-bor 600 mg calcium- 20 mcg-50 mg Tablet 1 tab PO DAILY fluticasone furoate 200 mcg/actuation Blister With Device 2 inh INHALATION Discontinued ibuprofen 200 mg Tablet 400 mg PO PRN PRN hydroxyzine pamoate 25 mg Capsule 25 mg PO TID albuterol sulfate 90 mcg/actuation Aero Powdr Breath Act W/Sensor 1 inh INHALATION [id number] No Action paroxetine HCl 20 mg Tablet 20 mg PO DAILY vitamin B complex [B Complex] Capsule 1 cap PO DAILY Discharge Instructions Instructions: Aspirin (By mouth), Pravastatin (By mouth), Clopidogrel (By mouth), Transient Ischemic Attack (DC) Additional Instructions: Take Aspirin, Plavix and Pravastatin daily until seen by Neurology at [facility]. Radiology will call you with appointments for an echocardiogram and a MRI of your head. If you have any resumption of symptoms, you should call 911 and go to the emergency department. Stand Alone Forms: Nursing Discharge Form Referrals: NEUROLOGY,[facility] [OTHER] - (Please call Friday to make an Appointment for follow up hospitalization for TIA ) Deana Shaw [Primary Care Provider] - (Please call Friday to make an Appointment in the next 1-2 weeks for a hospital follow up ) Activity:: Activity as Tolerated Equipment/Supplies:: No Equipment Needed Diet:: Low Sodium Discharge Orders Discharge Orders: Discharge Order (Routine); Ordered 11/04/22 Ordered By: Regina Bajwa Other Ambulatory Orders: MR brain wo (Routine) Location: None Selected Ordered By: Regina Bajwa US echocardiogram (Routine) Location: None Selected Ordered By: Regina Bajwa Discharge Data Discharge Date/Time-TO BE ENTERED AT DEPARTURE: 11/04/22 11:44 DS: Summary Time Spent with Patient providing and/or coordinating discharge services: Greater than 30 minutes Status at Discharge Functional status at discharge: independent ambulation Overall status at discharge: patient is back to baseline Mental Status: mental status grossly normal Speech and Movement: speech and movement normal Mood: congruent mood Affect: normal affect Exam Psych Mental Status: mental status grossly normal Speech and Movement: speech and movement normal Mood: congruent mood Affect: normal affect DS: Data Vitals/I&O Vitals and I&O: Vital Signs Temperature 37.0 C 11/04/22 07:24 Temperature Source Tympanic 11/04/22 07:24 Pulse 67 11/04/22 08:02 Pulse Rhythm Regular 11/04/22 03:16 Pulse 73 11/03/22 12:50 Respiratory Rate 16 11/04/22 07:24 Respiratory Effort Non-Labored 11/04/22 03:16 Respiratory Depth Normal 11/04/22 03:16 Respiratory Pattern Normal 11/04/22 03:16 Blood Pressure 109/71 11/04/22 07:24 Blood Pressure Mean 80 11/03/22 12:45 Blood Pressure Position Sitting 11/03/22 10:32 Pulse Oximetry 96 11/04/22 07:24 Oxygen Delivery Method Room Air 11/04/22 07:24 Oxygen Flow Rate 0 11/04/22 07:24 Pain Level 0 11/04/22 07:24 Intake & Output 11/03/22 11/03/22 11/04/22 11:59 23:59 11:59 Intake Total 10 / 158.75 148.75 / 158.75 750 / 750 Output Total 1100 / 1100 Balance 10 / -941.25 -951.25 / -941.25 750 / 750 Weight 86.183 kg 86.183 kg Intake: IV 10 / 158.75 148.75 / 158.75 Oral 750 / 750 Output: Urine 1100 / 1100 Stool 0 / 0 Other: Urine Color Pale Yellow Omega Urine Appearance Clear Clear Urine Odor Normal Comment trace of blood because patient is on menstral cycle Voiding Methods Toilet Bedside Commode Data Completed and Pending Labs on day of discharge: Labs from last 24 hours 11/04/22 11/04/22 11/04/22 05:48 05:48 05:48 WBC 7.73 RBC 4.60 Hgb 13.8 Hct 40.4 MCV 88 MCH 30.0 MCHC 34.2 RDW 12.3 Plt Count 300 MPV 9.6 Immature Gran % 0.1 Neutrophils % 45.8 Lymphocytes % 40.4 Monocytes % 5.4 Eosinophils % 7.9 Basophils % 0.4 Nucleated RBC % 0.0 Absolute Neutrophils 3.54 Absolute Lymphocytes 3.12 Absolute Monocytes 0.42 Absolute Eosinophils 0.61 Absolute Basophils 0.03 PT 9.9 INR 1.0 APTT 25.2 Sodium 139 Potassium 3.7 Chloride 104 Carbon Dioxide 27.3 Anion Gap 7.7 BUN 10 Creatinine 0.9 Est GFR (CKD-EPI 2020) 78.86 Glucose 116 H Hemoglobin A1c Calcium 8.6 Magnesium Total Bilirubin 0.3 AST 12 L ALT 14 Alkaline Phosphatase 54 Troponin I Total Protein 7.1 Albumin 3.3 L Triglycerides Total Cholesterol LDL Cholesterol, Calc HDL Cholesterol Vitamin B12 TSH Urine Color Urine Clarity Urine pH Ur Specific [place] Urine Protein Urine Ketones Urine Blood Urine Nitrite Urine Bilirubin Urine Urobilinogen Ur Leukocyte Esterase Urine RBC Urine WBC Ur Epithelial Cells Urine Crystals Urine Bacteria Urine Casts Urine Mucus Ur Culture Indicated? Urine Glucose Urine Opiates Screen Urine Methadone Screen Ur Barbiturates Screen Ur Tricyclics Screen Ur Amphetamines Screen U Benzodiazepines Scrn Urine Cocaine Screen Ur THC Screen B. divergens/MO-1 PCR Babesia duncani (PCR) Babesia microti DNA PCR Lyme Disease Antibody COVID-19 Source SARS-CoV-2 (PCR) E.chaffeensis DNA (PCR) E.ewingii/canis DNA PCR E. muris-like DNA (PCR) A. phagocytophilum (PCR) Blood B. miyamotoi (PCR) 11/04/22 11/04/22 11/03/22 05:48 05:48 15:35 WBC RBC Hgb Hct MCV MCH MCHC RDW Plt Count MPV Immature Gran % Neutrophils % Lymphocytes % Monocytes % Eosinophils % Basophils % Nucleated RBC % Absolute Neutrophils Absolute Lymphocytes Absolute Monocytes Absolute Eosinophils Absolute Basophils PT INR APTT Sodium Potassium Chloride Carbon Dioxide Anion Gap BUN Creatinine Est GFR (CKD-EPI 2020) Glucose Hemoglobin A1c Calcium Magnesium 1.9 Total Bilirubin AST ALT Alkaline Phosphatase Troponin I Total Protein Albumin Triglycerides 87 Total Cholesterol 179 LDL Cholesterol, Calc 112 H HDL Cholesterol 50 Vitamin B12 TSH Urine Color Urine Clarity Urine pH Ur Specific [place] Urine Protein Urine Ketones Urine Blood Urine Nitrite Urine Bilirubin Urine Urobilinogen Ur Leukocyte Esterase Urine RBC Urine WBC Ur Epithelial Cells Urine Crystals Urine Bacteria Urine Casts Urine Mucus Ur Culture Indicated? Urine Glucose Urine Opiates Screen Negative Urine Methadone Screen Negative Ur Barbiturates Screen Negative Ur Tricyclics Screen Negative Ur Amphetamines Screen Negative U Benzodiazepines Scrn Negative Urine Cocaine Screen Negative Ur THC Screen Positive A B. divergens/MO-1 PCR Pending Babesia duncani (PCR) Pending Babesia microti DNA PCR Pending Lyme Disease Antibody Pending COVID-19 Source SARS-CoV-2 (PCR) E.chaffeensis DNA (PCR) Pending E.ewingii/canis DNA PCR Pending E. muris-like DNA (PCR) Pending A. phagocytophilum (PCR) Pending Blood B. miyamotoi (PCR) Pending 11/03/22 11/03/22 11/03/22 14:05 12:43 11:00 WBC RBC Hgb Hct MCV MCH MCHC RDW Plt Count MPV Immature Gran % Neutrophils % Lymphocytes % Monocytes % Eosinophils % Basophils % Nucleated RBC % Absolute Neutrophils Absolute Lymphocytes Absolute Monocytes Absolute Eosinophils Absolute Basophils PT INR APTT Sodium Potassium Chloride Carbon Dioxide Anion Gap BUN Creatinine Est GFR (CKD-EPI 2020) Glucose Hemoglobin A1c Calcium Magnesium Total Bilirubin AST ALT Alkaline Phosphatase Troponin I < 50 Total Protein Albumin Triglycerides Total Cholesterol LDL Cholesterol, Calc HDL Cholesterol Vitamin B12 TSH Urine Color Yellow Urine Clarity Sl Cloudy Urine pH 7.5 Ur Specific [place] 1.015 Urine Protein Negative Urine Ketones Negative Urine Blood Large H Urine Nitrite Negative Urine Bilirubin Negative Urine Urobilinogen 0.2 Ur Leukocyte Esterase Negative Urine RBC 20-50 H Urine WBC 0-2 Ur Epithelial Cells Rare Urine Crystals Negative Urine Bacteria Negative Urine Casts Negative Urine Mucus Negative Ur Culture Indicated? No Urine Glucose Negative Urine Opiates Screen Urine Methadone Screen Ur Barbiturates Screen Ur Tricyclics Screen Ur Amphetamines Screen U Benzodiazepines Scrn Urine Cocaine Screen Ur THC Screen B. divergens/MO-1 PCR Babesia duncani (PCR) Babesia microti DNA PCR Lyme Disease Antibody COVID-19 Source Nasal/Nares SARS-CoV-2 (PCR) Negative E.chaffeensis DNA (PCR) E.ewingii/canis DNA PCR E. muris-like DNA (PCR) A. phagocytophilum (PCR) Blood B. miyamotoi (PCR) 11/03/22 11/03/22 11/03/22 10:45 10:43 10:43 WBC RBC Hgb Hct MCV MCH MCHC RDW Plt Count MPV Immature Gran % Neutrophils % Lymphocytes % Monocytes % Eosinophils % Basophils % Nucleated RBC % Absolute Neutrophils Absolute Lymphocytes Absolute Monocytes Absolute Eosinophils Absolute Basophils PT INR APTT Sodium Cancelled Potassium Cancelled Chloride Cancelled Carbon Dioxide Cancelled Anion Gap Cancelled BUN Cancelled Creatinine Cancelled Est GFR (CKD-EPI 2020) Cancelled Glucose Cancelled Hemoglobin A1c 5.7 Calcium Cancelled Magnesium Total Bilirubin Cancelled AST Cancelled ALT Cancelled Alkaline Phosphatase Cancelled Troponin I Total Protein Cancelled Albumin Cancelled Triglycerides Total Cholesterol LDL Cholesterol, Calc HDL Cholesterol Vitamin B12 602 TSH Urine Color Urine Clarity Urine pH Ur Specific [place] Urine Protein Urine Ketones Urine Blood Urine Nitrite Urine Bilirubin Urine Urobilinogen Ur Leukocyte Esterase Urine RBC Urine WBC Ur Epithelial Cells Urine Crystals Urine Bacteria Urine Casts Urine Mucus Ur Culture Indicated? Urine Glucose Urine Opiates Screen Urine Methadone Screen Ur Barbiturates Screen Ur Tricyclics Screen Ur Amphetamines Screen U Benzodiazepines Scrn Urine Cocaine Screen Ur THC Screen B. divergens/MO-1 PCR Babesia duncani (PCR) Babesia microti DNA PCR Lyme Disease Antibody COVID-19 Source SARS-CoV-2 (PCR) E.chaffeensis DNA (PCR) E.ewingii/canis DNA PCR E. muris-like DNA (PCR) A. phagocytophilum (PCR) Blood B. miyamotoi (PCR) 11/03/22 11/03/22 11/03/22 10:43 10:43 10:43 WBC RBC Hgb Hct MCV MCH MCHC RDW Plt Count MPV Immature Gran % Neutrophils % Lymphocytes % Monocytes % Eosinophils % Basophils % Nucleated RBC % Absolute Neutrophils Absolute Lymphocytes Absolute Monocytes Absolute Eosinophils Absolute Basophils PT INR APTT Sodium 138 Potassium 3.6 Chloride 102 Carbon Dioxide 28.5 Anion Gap 7.5 BUN 10 Creatinine 0.9 Est GFR (CKD-EPI 2020) 78.86 Glucose 109 H Hemoglobin A1c Calcium 8.9 Magnesium 1.8 Total Bilirubin 0.4 AST 16 ALT 17 Alkaline Phosphatase 56 Troponin I < 50 Total Protein 7.8 Albumin 3.7 Triglycerides Total Cholesterol LDL Cholesterol, Calc HDL Cholesterol Vitamin B12 TSH 2.32 Urine Color Urine Clarity Urine pH Ur Specific [place] Urine Protein Urine Ketones Urine Blood Urine Nitrite Urine Bilirubin Urine Urobilinogen Ur Leukocyte Esterase Urine RBC Urine WBC Ur Epithelial Cells Urine Crystals Urine Bacteria Urine Casts Urine Mucus Ur Culture Indicated? Urine Glucose Urine Opiates Screen Urine Methadone Screen Ur Barbiturates Screen Ur Tricyclics Screen Ur Amphetamines Screen U Benzodiazepines Scrn Urine Cocaine Screen Ur THC Screen B. divergens/MO-1 PCR Babesia duncani (PCR) Babesia microti DNA PCR Lyme Disease Antibody COVID-19 Source SARS-CoV-2 (PCR) E.chaffeensis DNA (PCR) E.ewingii/canis DNA PCR E. muris-like DNA (PCR) A. phagocytophilum (PCR) Blood B. miyamotoi (PCR) 11/03/22 10:43 WBC 8.31 RBC 4.60 Hgb 13.6 Hct 40.7 MCV 89 MCH 29.6 MCHC 33.4 RDW 12.0 Plt Count 301 MPV 9.7 Immature Gran % 0.2 Neutrophils % 52.2 Lymphocytes % 37.5 Monocytes % 5.5 Eosinophils % 4.2 Basophils % 0.4 Nucleated RBC % 0.0 Absolute Neutrophils 4.33 Absolute Lymphocytes 3.12 Absolute Monocytes 0.46 Absolute Eosinophils 0.35 Absolute Basophils 0.03 PT INR APTT Sodium Potassium Chloride Carbon Dioxide Anion Gap BUN Creatinine Est GFR (CKD-EPI 2020) Glucose Hemoglobin A1c Calcium Magnesium Total Bilirubin AST ALT Alkaline Phosphatase Troponin I Total Protein Albumin Triglycerides Total Cholesterol LDL Cholesterol, Calc HDL Cholesterol Vitamin B12 TSH Urine Color Urine Clarity Urine pH Ur Specific [place] Urine Protein Urine Ketones Urine Blood Urine Nitrite Urine Bilirubin Urine Urobilinogen Ur Leukocyte Esterase Urine RBC Urine WBC Ur Epithelial Cells Urine Crystals Urine Bacteria Urine Casts Urine Mucus Ur Culture Indicated? Urine Glucose Urine Opiates Screen Urine Methadone Screen Ur Barbiturates Screen Ur Tricyclics Screen Ur Amphetamines Screen U Benzodiazepines Scrn Urine Cocaine Screen Ur THC Screen B. divergens/MO-1 PCR Babesia duncani (PCR) Babesia microti DNA PCR Lyme Disease Antibody COVID-19 Source SARS-CoV-2 (PCR) E.chaffeensis DNA (PCR) E.ewingii/canis DNA PCR E. muris-like DNA (PCR) A. phagocytophilum (PCR) Blood B. miyamotoi (PCR) PFSH All Active Problems (Updated 11/06/22 @ 08:30 by ALEXANDRA Yanez) History of TIA due to embolism (Acute) Social History Smoking/Tobacco Use Status: Former Tobacco Use Smoking risk assessment performed?: Yes Alcohol Intake: current Alcohol Intake frequency: holidays/special occasions only Drug use: Occasionally Substance use type: marijuana Do you feel safe at home: Yes Do you feel safe in your relationship?: Yes
[2022-11-04 11:15] VITALS: BP 113/74; PULSE 69; RESP 16; TEMP 37.1; O2SAT 96
[2022-11-05 11:12] LABS: Lyme Ab w Rflx to Lyme Confirm Negative (Negative)
[2022-11-07 18:21] LABS: Anaplasma phagocytophilum Negative (Negative); B. miyamotoi PCR Negative (Negative); Babesia divergens/MO-1 Negative (Negative); Babesia duncani Negative (Negative); Babesia microti Negative (Negative); Ehrlichia chaffeensis Negative (Negative); Ehrlichia ewingii/canis Negative (Negative); Ehrlichia muris eauclairensis Negative (Negative)
== END 2022-11-04 11:44 | disposition home or self-care (01) ==
LOC: ER 10:54 → MS 13:23
PROVIDERS: Nurse Practitioner Family; Admitting Provider Internal Medicine; Emergency Provider Physician Assistant; PCP Internal Medicine; Visit Provider Internal Medicine
DX: R20.2 Paresthesia of skin (principal); R31.9 Hematuria, unspecified; Z87.891 Personal history of nicotine dependence; R53.1 Weakness; Z20.822 Contact with and (suspected) exposure to COVID-19; F12.90 Cannabis use, unspecified, uncomplicated; Z79.899 Other long term (current) drug therapy
CPT/HCPCS: 36415; 36416; 70496; 70498; 80053; 80061; 80307; 82962; 87635; 87798; 93005; 99291; 71045; 81003; 81015; 82607; 83036; 83735; 84443; 84484; 85025; 85610; 85730; 86618; 93010; 99217; 99219; G0378; J3490

== ENCOUNTER 2022-11-26 02:06 | Outpatient (CLI) | payer MEDICARE, MEDICAID, SELFPAY ==
--- NOTE | 2022-11-26 | DI.MRI_ITS ---
Exam(s) MR BRAIN WO EXAM: MR BRAIN WO CLINICAL HISTORY: TIA, PARESTHESIA LT UPPER AND LOWER EXT,FACIAL, R20.2 TECHNIQUE: Multiplanar multisequence MRI of the brain was performed. COMPARISON: No exams were available for comparison FINDINGS: CEREBRAL PARENCHYMA: There is no evidence of intracranial hemorrhage, mass effect, or shift of midline structures. There are no extra-axial fluid collections. Ventricles are not enlarged or shifted. No evidence of cerebe llar tonsillar ectopia. There is no significant focal signal abnormality in the cerebellar hemispheres nor within the aleshia, m idbrain, and thalami. There is no abnormal signal abnormality in the periventricular white matter. No evidence of demyelin ating disease. There is no significant focal signal abnormality evident on diffusion imaging to suggest acute ischem ic event. PITUITARY GLAND: No mass nor parasellar abnormality. No obvious abnormality in the cavernous sinuses. FLOW VOIDS: The expected flow void are noted. No evidence of obvious aneurysm nor obvious vascular ma lformation. PARANASAL SINUSES: The visualized paranasal sinuses appear unremarkable. No obvious finding ORBITS: No obvious findings. IMPRESSION: No significant intracranial findings on this noninfused MRI scan of the brain. No evidence of demyelinating disease, given the history here. DATA REPOSITORY:
== END 2022-11-26 02:26 ==
PROVIDERS: PCP Internal Medicine; Visit Provider Nurse Practitioner Family
DX: R20.2 Paresthesia of skin (principal)
CPT/HCPCS: 70551

== ENCOUNTER 2022-12-03 02:09 | Outpatient (CLI) | payer MEDICARE, MEDICAID, SELFPAY ==
--- NOTE | 2022-12-03 14:52 | DI.US_ITS ---
APPROVED REPORT EXAM: Comprehensive 2D, Doppler, and color-flow Echocardiogram Patient Location: Out-Patient [facility] Family Counselor: Meryr Diamond RDCS (AE) Indications: TIA, paresthesia lt upper and lower ext Other Information Study Quality: Adequate Conclusion Normal left ventricular wall thickness and chamber size. Estimated ejection fraction is 60%. Wall m otion is normal Normal right ventricular size and systolic function Both atria are normal in size Aortic valve is trileaflet with trace regurgitation Normal mitral valve with trace regurgitation Normal tricuspid valve with trace to mild regurgitation. Estimated right ventricular systolic pressu re is 20 mmHg Wall motion Left Ventricle The left ventricle is normal size. The left ventricular systolic function is normal. The left ventric ular ejection fraction is within the normal range. There is normal left ventricular wall thickness. T here is normal LV segmental wall motion. There is no ventricular septal defect visualized. LVEF is 60 %. Right Ventricle The right ventricle is normal size. The right ventricular systolic function is normal. The RVSP is 19 .7mmHg. Atria The left atrium size is normal. The right atrium size is normal. The interatrial septum is intact wit h no evidence for an atrial septal defect. Aortic Valve The aortic valve is normal in structure. Aortic valve is trileaflet. There is no aortic valvular sten osis. Trace aortic regurgitation. Mitral Valve The mitral valve is normal in structure. No evidence of mitral valve stenosis. Trace mitral regurgita tion. Tricuspid Valve The tricuspid valve is normal in structure. There is no tricuspid valve stenosis. Trace to mild tric uspid regurgitation. Pulmonic Valve The pulmonary valve is normal in structure. There is no pulmonic valvular stenosis. Trace to mild p ulmonic regurgitation. Great Vessels The aortic root is normal in size. The ascending aorta is mildly dilated. Aortic arch is normal in ca liber. IVC is normal in size and collapses >50% with inspiration. Pericardium There is no pericardial effusion. 2D Dimensions IVSD d PLAX 0.80 cm F: 0.6-1.0 LV Vol A2C d MOD 89.2 mL LVPW d PLAX 0.87 cm F: 0.6 - 1.0 LV Vol A4C d MOD 114.0 mL LVID d PLAX 4.66 cm F: 3.8 - 5.2 LA vol/ BSA A2C s A-L 24.2 mL/m2 LVDs 3.05 cm F: 2.2 - 3.5 LA vol/ BSA A4C s A-L 28.6 mL/m2 Ao Root d 2.94 cm F: 2.7 - 3.3 LA Vol/ BSA Biplane s A-L 27.8 mL/m2 RA Area A4C 13.89 cm2 LA Area A4C s MOD 19.16 cm2 RA Vol/ BSA A4C s A-L 17.2 mL/m2 LA Area A2C s MOD 16.65 cm2 Ao Asc Diam d 3.25 cm F: 2.3 - 3.1 LV EF A4C MOD 59.8 % LV EF Teichholz 62.4 % LV EF A2C MOD 60.5 % LVEF (Kern's) 59.15 % F: 54 - 74 LV EF Biplane MOD 59.1 % LV Volume 77.86 mL F: 46 - 106 SV 60.24 mL LV Volume Index 41.19 mL/m2 F: 29 - 61 SV Index 31.86 mL/m2 LV Vol Biplane MOD 101.9 mL FS 33.60 % M-Mode TAPSE 2.27 cm (M/F) >1.7 LV Diastology MV E' medial 0.070 (>0.07 m/s) E/A Ratio 0.9 LV E/e MED 8.20 (<14) MV E Vmax 0.57 (0.4-1.3 m/s) MV E' lateral 0.109 (>0.1 m/s) MV A Vmax 0.60 (0.4-1.3 m/s) LV E/e LAT 5.25 (<14) MV E/A Ratio 0.89 MV E/E' medial 8.23 MV E/E' lateral 5.27 Aortic Valve LVOT Area 3.04 cm2 AoV Area Vmax 2.12 cm2 LVOT Vmax 0.96 m/s AoV Area/ BSA (Vmax) 1.12 cm2/m2 LVOT Mean Raimundo. 0.57 m/s NOE Mean Raimundo. 1.80 cm2 LVOT Peak Grad 3.7 mmHg NOE Mean Raimundo. Index 0.95 cm2/m2 LVOT Mean Grad 1.6 mmHg AR DT 2343 msec LVOT VTI 0.207 m AR PHT 679 msec LVOT Diam s 1.95 cm AoV Vmax 1.38 m/s Velocity Ratio 0.70 AoV Mean Raimundo. 0.96 m/s AoV Peak Grad 7.6 mmHg LVOT SV 63.12 mL AoV Mean Grad 4.1 mmHg AoV VTI 0.266 m AoV Area VTI 2.37 cm2 AoV Area/ BSA (VTI) 1.25 cm/m2 Mitral Valve MV DT 214 (160-240 msec) MV PHT 62 msec MV Area PHT 3.54 cm2 MV VTI 0.255 m MV Area VTI 2.48 (4.0-6.0 cm2) Pulmonary Valve PV Vmax 0.91 (0.5-1.5 m/s) RVOT Peak Gr. 1.98 mmHg PV Peak Grad 3.3 mmHg RVOT Mean Gr. 0.90 mmHg PV Mean Grad 1.7 mmHg RVOT VTI 0.155 m PV VTI 0.174 m RVOT Vmax 0.70 m/s Tricuspid Valve TR Peak Grad 16.7 mmHg TR Vmax 2.04 m/s RA Pressure 3.00 mmHg RVSP (TR) 19.7 mmHg
== END 2022-12-03 02:29 ==
PROVIDERS: PCP Internal Medicine; Visit Provider Nurse Practitioner Family
DX: G45.9 Transient cerebral ischemic attack, unspecified (principal); R20.2 Paresthesia of skin
CPT/HCPCS: 93306